=== PATIENT | female | born 2000 | race Two or more races ===

== ENCOUNTER 2024-09-03 16:30 | Emergency (ER) | payer MEDICAID, SELFPAY ==
--- NOTE | 2024-09-03 16:36 | EDNOTE_ITS ---
<Statement entered by Radha Handley MD - 09/12/24 15:52> As co-signing physician, I was present and available for consult prn. I concur with the plan and care as documented by the midlevel provider. ED General RME/HPI General Chief complaint: Overdose Stated complaint: OVERDOSE Time Seen by Provider: 09/03/24 16:35 Arrival date/time: 09/03/24 16:30 CC: Intentional overdose HPI patient took between 10 and 15, 30 mg of Abilify because she was tired of the family arguments and was considering harming herself. Ingestion 1 hour ago approximately. The patient denies homicidal ideation. No specific complaints currently on her menses. Related Data Home Medications ?Medication ?Instructions ?Recorded ?Confirmed vit no.133-ferrous 1 tab PO QDAY 10/16/22 12/08/22 fumarate 28 mg-folic acid 800 mcg tablet () Previous Rx's ?Medication ?Instructions ?Recorded ibuprofen 800 mg tablet 800 mg PO TID PRN pain #30 tabs 04/14/24 Allergies Allergy/AdvReac Type Severity Reaction Status Date / Time No Known Allergies Allergy Verified 04/18/24 09:48 Review of Systems Review of Systems Narrative Review of Systems: GEN: No fever, no chills, no weight loss EYES: No discharge, no visual changes, no pain HEENT: No ear pain, no congestion, no sore throat PULM: No shortness of breath, no cough, no congestion CV: No chest pain, no dyspnea on exertion, no palpitations GI: No nausea, no vomiting, no diarrhea, no pain, no constipation : No frequency, no urgency, no dysuria MUSC/SKEL: No joint pain, no back pain SKIN: No rash PSYCH: No hallucinations, no depression,+ HEME/LYMPH: No easy bleeding or bruising tendencies NEURO: No weakness, no headache Past Medical History Past Medical History CARDIAC: Negative Cardiac Disorders, Myocardial Infarction, Cardiac Arrhythmia, Atrial Fibrillation, Angina, Heart Murmur, Coronary Artery Disease, Atherosclerotic Heart Disease, Peripheral Vascular Disease, Hypercholesterolemia, Aneurysm, Congestive Heart Failure, Congenital Heart Disease, Valvular Heart Disease, Rheumatic Fever, Cardiomyopathy, Edema, Pericarditis, Cellulitis, Deep Vein Thrombosis, Hypertension, Hypotension or Varicose Veins RESPIRATORY: Negative Chronic Obstructive Pulmonary Disease (COPD) GENITOURINARY: Negative Renal Disease REPRODUCTIVE: Positive Previous Pregnancies ENDOCRINE: Negative Diabetes Mellitus Type 1 or Diabetes Mellitus Type 2 PSYCHO/SOCIAL: Positive Schizophrenia, Bipolar Disorder, Depression, Anxiety and Behavior Problems OTHER HISTORY: Negative Autoimmune Disease Family History FAMILY HISTORY: Negative Family Psychiatric Problems, Family Respiratory Disorders, Family Cardiac Disorders, Family Gastrointestinal Problems, Family Cancer, Family Surgery or Family Anesthesia Reaction Surgical History SURGICAL: Negative Pacemaker Social History SMOKING STATUS: Never smoker SUBSTANCE USE: marijuana (smokes) ED Exam Narrative Physical exam: [General: Obese not in any acute distress Head normocephalic HEENT: Within acceptable limits Neck is supple nontender Chest equal chest rise nontender to palpation Respiratory: Clear to auscultation no wheezes crackles or rubs CV: Rate rhythm is regular no murmurs rubs or clicks Abdomen is distended secondary to body habitus soft nontender no masses positive bowel sounds all 4 quadrants Back: No CVA tenderness no spinous process tenderness from cervical spine thoracic and lumbar spine Skin: Intact no petechiae rash induration ulceration or crepitus Extremities: Moving all extremity against resistance cap refill less than 2 seconds neurosensory intact Neuro: Awake alert oriented x3 Glascow coma 15 no focal deficits] Course Course Course Narrative: Poison control contacted the recommendation for EKG salicylates aspirin the standard overdose workup in addition to worry about prolonged sedation, 6-hour observation is recommended. Activated charcoal as recommended. Quality Measures none Orders Category Date Time Status EKG (ED ONLY) *Do not use* NOW Care 09/03/24 16:47 Completed EKG (ED ONLY) *Do not use* NOW Care 09/03/24 22:20 Completed EKG (ED ONLY) *Do not use* NOW Care 09/04/24 03:03 Completed Insert NG / OG tube NOW Care 09/03/24 17:47 Completed NG [DC NG / OG Tube] NOW Care 09/03/24 17:23 Completed Diet Regular Diet 09/04/24 Breakfast Active EKG (ED Only) Stat Exams 09/03/24 16:47 Draft EKG (ED Only) Stat Exams 09/03/24 22:20 Ordered EKG (ED Only) Stat Exams 09/04/24 03:03 Ordered Acetaminophen Stat Lab 09/03/24 16:45 Completed Alcohol, Blood Medical Stat Lab 09/03/24 16:45 Completed CBC Stat Lab 09/03/24 16:45 Completed CMP [Comprehensive Metabolic Panel] Stat Lab 09/03/24 16:45 Completed Drug Screen,Urine Stat Lab 09/04/24 03:28 Completed HCG Qualitative,Urine Stat Lab 09/04/24 03:28 Completed Salicylate Stat Lab 09/03/24 16:45 Completed Urinalysis Stat Lab 09/04/24 03:28 Completed activated charcoaL [Actidose-Aqua] Med 09/03/24 16:47 Discontinued 50 gm PO X1 ONE Late Tray Request Routine Oth 09/03/24 18:04 Active Vital Signs Vital signs: Vital Signs Temperature 98.1 F 09/03/24 17:21 Pulse Rate 92 09/03/24 17:21 Respiratory Rate 16 09/03/24 17:21 Blood Pressure 124/89 H 09/03/24 17:21 Pulse Oximetry (%) 98 09/03/24 17:21 Oxygen Delivery Method Room Air 09/03/24 17:21 [facility] Patient data External records reviewed:: [facility] previous records and EMS form Clinical information provided by:: patient and EMS Social determinants that could affect healthcare access:: none Patient has the following chronic illnesses:: Schizophrenia How is presenting disease/condition affected by chronic disease/condition?: e xacerbated by Evaluation data The following diagnostics were reviewed and interpreted by me:: lab results Lab and/or radiology exams considered but not ordered:: CBC shows no acute leukocytosis anemia thrombocytopenia CMP shows no significant electrolyte imbalances renal impairment transaminitis or T. bili elevation EKG performed at 1810 shows a ventricular rate of 84 NJ interval 138 QRS of 9 0 QTc of 407 normal sinus rhythm. No prolonged QTc interval. Repeat EKG done 2205 shows a ventricular rate of 82 NJ interval 127 QRS of 92 QTc of 398 this is sinus rhythm. No prolonged QTc interval Interpretation Summary: Open no suicidal ideation Medications Medications considered but not ordered:: None Medication administrations:: Medication Administration History Discontinued Medications Charcoal (Activated Charcoal 25 Gm/120 Ml Tube) 50 gm PO X1 ONE Stop: 09/03/24 16:48 Last Admin: 09/03/24 16:58 Dose: 50 gm Documented By: SAMUEL Comments: PER KENTON BURTON, PATIENT WAS UNABLE TO TOLERATED MEDICATION PO, PER PROVIDER MARIANO HINSON TO GIVE THE REST OF MEDICATION VIA NG TUBE, REST OF MEDICATION WAS GIVEN VIA NG TUBE BY KENTON BURTON. None Consultations Consultation(s) initiated? (list below): No Diagnosis Differential Diagnosis ED Complaint MDM: Overdose suicidal ideation Most likely diagnosis given after review of the tests above:: Overdose suicidal ideation Admission Indicated Admission indicated?: not indicated Explain why admission is indicated or not indicated:: Stable for outpatient follow-up Admission Request Was there a request for admission?: No Disposition Plan Disposition Plan: Discharge Discharge Attestation Discharge Attestation: The patient and all family members were given an opportunity to ask questions and understood the discharge instructions. Discharge instructions specifically effects, indications for sooner follow up or return to the emergency department, and the expected course of current diagnosis. Patient condition: Stable Medical Decision Making Differential Diagnosis Differential Diagnosis: Overdose suicidal ideation Lab Data 09/03/24 16:45 09/03/24 16:45 Labs: Lab Results 09/03/24 09/04/24 Range/Units 16:45 03:28 WBC 6.2 (3.6-11.0) Thou/mm3 RBC 4.39 (4.00-5.20) Miln/mm3 Hgb 12.7 (12.0-16.0) g/dL Hct 37.0 (36.0-46.0) % MCV 84 (80-100) fL MCH 28.9 (25.0-35.0) pg MCHC 34.3 (31.0-37.0) g/dl RDW Std Deviation 40.2 (36.4-46.3) fL Plt Count 229 (140-440) Thou/mm3 Neut % (Auto) 61 (37-80) % Lymph % (Auto) 32 (10-50) % Rice % (Auto) 6 (0-12) % Eos % (Auto) 1 (0-10) % Baso % (Auto) 1 (0-2.5) % Neut # (Auto) 3.8 (1.8-7.7) Thou/mm3 Lymph # (Auto) 2.0 (1.0-4.8) Thou/mm3 Rice # (Auto) 0.3 (0.0-0.8) Thou/mm3 Eos # (Auto) 0.1 (0.0-0.5) Thou/mm3 Baso # (Auto) 0.0 (0.0-0.2) Thou/mm3 Immature Gran # (Auto) 0.01 H (0.00-0.00) Thou/mm3 Absolute Nucleated RBC 0.00 (0.00-0.00) Thou/mm3 Immature Gran % 0 (0-0) % Nucleated RBC % 0 (0) /100 WBC Sodium 140 (136-145) mMol/L Potassium 4.1 (3.4-5.1) mMol/L Chloride 106 (98-107) mMol/L Carbon Dioxide 25.3 (20.0-31.0) mMol/L Anion Gap 9 (7-16) BUN 9 (9-23) mg/dL Creatinine 0.8 (0.6-1.3) mg/dL Estim Creat Clear Calc 130.9 (>60) mL/min eGFR > 60 (60 - ) See Note BUN/Creatinine Ratio 11 L (12-20) Ratio Glucose 105 (74-106) mg/dL Calculated Osmolality 278 (275-295) Calcium 9.6 (8.3-10.6) mg/dL Corrected Calcium 9.6 (8.5-10.1) mg/dL Total Bilirubin 0.3 (0.3-1.2) mg/dL AST 17 (0-34) U/L ALT 22 (10-49) U/L Alkaline Phosphatase 59 (46-116) U/L Total Protein 7.7 (5.7-8.2) gm/dL Albumin 4.9 (3.5-5.0) gm/dL Globulin 2.8 (2.3-3.5) gm/dL Albumin/Globulin Ratio 1.8 (1.2-2.2) Ur Collection Type Clean Catch Urine Color Yellow (Lt Yel-Yel) Urine Clarity Turbid A (Clear/Hazy) Urine pH 5.5 (5.0-7.0) Ur Specific [place] 1.031 (1.001-1.035) Urine Protein 1+ A (Neg - Trace) Urine Glucose (UA) Negative (Negative) Urine Ketones Negative (Negative) Urine Blood 3+ A (Negative) Urine Nitrite Negative (Negative) Urine Bilirubin Negative (Negative) Urine Urobilinogen (Auto) Negative (0.0-1.0) mg/dL Ur Leukocyte Esterase Negative (Negative) Urine RBC 1126 H (0-3) /hpf Urine WBC 24 H (0-5) /hpf Ur Squamous Epith Cells 9 H (0-5) /hpf Urine Bacteria Rare (None) Urine HCG, Qual Negative Salicylates < 3.0 mg/dL Urine Opiates Screen Negative (Negative) Urine Fentanyl Screen Negative (Negative) Acetaminophen < 2.0 L (10.0-20.0) mcg/mL Ur Barbiturates Screen Negative (Negative) U Amphetamin/Meth Scrn Negative (Negative) U Benzodiazepines Scrn Negative (Negative) U Cocaine Metab Screen Negative (Negative) U Marijuana (THC) Screen Negative (Negative) Ethyl Alcohol < 10.0 (0-10.0) mg/dL Discharge Plan Plan Patient Disposition: HOME (Self Care) Prescriptions/Referrals Prescriptions/Med Rec: No Action 28-800 mg-mcg Tablet 1 tab PO QDAY ibuprofen 800 mg tablet 800 mg PO TID PRN (Reason: pain) Qty: 30 0RF Referrals: Peterson Lamar MD [Primary Care Provider] - In 1 week Problem List Clinical Impression: Purposeful non-suicidal drug ingestion Patient/Caregiver Discharge Instructions Education Materials: ED Overdose, Intentional (Adult) Print Language: Khmer Stand Alone Forms: Asiya Award Info., Patient Portal Info Letter
--- NOTE | 2024-09-03 16:47 | EKG_ITS ---
[facility] Test Date: 2024-09-03 Pat Name: RAMONA SALGADO Department: Room: - Gender: Female Staff Sonographer: : 2000 Requested By: Gabo Klein Order Number: [id number] Reading MD: Gabo Klein Measurements Intervals [place] Rate: 84 P: 28 [place]: 138 QRS: 19 QRSD: 90 T: 23 QT: 366 QTc: 433 Interpretive Statements SINUS RHYTHM LOW QRS VOLTAGE IN PRECORDIAL LEADS [QRS DEFLECTION < 1.0 mV IN CHEST LEADS] No previous ECG available for comparison /store/S0/[id number]/[id number].pdf
[2024-09-03 16:53] VITALS: PULSE 104; RESP 16; O2SAT 98; BMI 39.4
[2024-09-03 16:57] LABS: Basophils % (Auto) 1 % (0-2.5); Eosinophils # (Auto) 0.1 Thou/mm3 (0.0-0.5); Eosinophils % (Auto) 1 % (0-10); Hemoglobin 12.7 g/dL (12.0-16.0); Immature Granulocytes % (Auto) 0 % (0-0); Immature Granulocytes Auto 0.01 Thou/mm3 (0.00-0.00); Lymphocytes % (Auto) 32 % (10-50); Mean Corpuscular HGB Conc 34.3 g/dl (31.0-37.0); Mean Corpuscular Hemoglobin 28.9 pg (25.0-35.0); Mean Corpuscular Volume 84 fL (80-100); Monocytes # (Auto) 0.3 Thou/mm3 (0.0-0.8); Monocytes % (Auto) 6 % (0-12); Neutrophils # (Auto) 3.8 Thou/mm3 (1.8-7.7); Neutrophils % (Auto) 61 % (37-80); Nucleated Red Blood Cell % 0 /100 WBC (0); Platelet Count 229 Thou/mm3 (140-440); RDW Standard Deviation 40.2 fL (36.4-46.3); Red Blood Count 4.39 Miln/mm3 (4.00-5.20); White Blood Count 6.2 Thou/mm3 (3.6-11.0)
[2024-09-03] MEDS: activated charcoaL 25 GM/120 ML TUBE 50 GM PO (16:58)
--- NOTE | 2024-09-03 17:06 | PC.NURSE ---
POISON CONTROL WAS CONTACTED BY PROVIDER PEREZ.
[2024-09-03 17:21] VITALS: BP 124/89; PULSE 92; RESP 16; TEMP 36.7; O2SAT 98
[2024-09-03 17:31] LABS: Acetaminophen < 2.0 mcg/mL (10.0-20.0); Alanine Aminotransferase 22 U/L (10-49); Albumin, Serum 4.9 gm/dL (3.5-5.0); Albumin/Globulin Ratio 1.8 (1.2-2.2); Alcohol, Blood Medical < 10.0 mg/dL (0-10.0); Alkaline Phosphatase 59 U/L (46-116); Anion Gap 9 (7-16); Aspartate Amino Transferase 17 U/L (0-34); BUN/Creatinine Ratio 11 Ratio (12-20); Bilirubin,Total 0.3 mg/dL (0.3-1.2); Blood Urea Nitrogen 9 mg/dL (9-23); Calcium 9.6 mg/dL (8.3-10.6); Calcium (Corrected) 9.6 mg/dL (8.5-10.1); Carbon Dioxide 25.3 mMol/L (20.0-31.0); Chloride 106 mMol/L (98-107); Creatinine (Component) 0.8 mg/dL (0.6-1.3); Estimated Creatinine Clearance 130.9 mL/min (>60); Globulin 2.8 gm/dL (2.3-3.5); Glucose 105 mg/dL (74-106); Osmolality,Calculated 278 (275-295); Potassium 4.1 mMol/L (3.4-5.1); Salicylate < 3.0 mg/dL; Sodium 140 mMol/L (136-145); Total Protein 7.7 gm/dL (5.7-8.2); eGFR > 60 See Note
--- NOTE | 2024-09-03 17:37 | PC.CC ---
Pt Ruth Alexander is a 23-year-old female in brought to ED by EMS for intentional overdose. Pt is pending medical clearance and psych eval.
--- NOTE | 2024-09-03 17:51 | PC.CC ---
Louise ORTEGA was consulted by YOEL Marsh regarding patient's medical clearance will depend on poison control.
[2024-09-03 18:18] VITALS: BP 130/71; PULSE 80; RESP 17; TEMP 36.9; O2SAT 98
[2024-09-03 20:07] VITALS: BP 110/62; PULSE 81; RESP 17; TEMP 36.6; O2SAT 98
[2024-09-03 22:25] VITALS: BP 111/76; PULSE 83; RESP 18; TEMP 36.8; O2SAT 97
--- NOTE | 2024-09-03 23:04 | PD.EDADDENDU ---
Emergency Room Addendum Addendum Narrative: 2300: Care assumed from Gabo Marsh NP. Past medical, surgical, social and family history reviewed. Vitals and home medications reviewed. Results and treatment plan discussed. I will assume the care of the patient at this time and will follow the patient, pending repeat EKG at 0200 and medical clearance for crisis evaluation. Please refer to the emergency department record for history and examination from initial visit. Repeat EKG done at 0311, rate of 81, low voltage, similar ST-T wave changes in lead III, QTc: 399, no STEMI, according to my interpretation. Patient is medically clear for crisis evaluation. Patient was placed in observation for treatment and monitoring of psychiatric symptoms, at 0311 09/04/2024. Symptoms consist of suicidal ideation and depression. Treatment plan includes psychiatric consult, reassessments, and possible placement into psychiatric facility. The patient had access and provided personal hygiene, shower, food, water, and daily medications. 0600: Care signed out to Dr. Handley (emergency physician). Past medical, surgical, social and family history reviewed. Vitals and home medications reviewed. Results and treatment plan discussed. They will assume the care of the patient at this time and will follow the patient, pending crisis evaluation. At this time, observation has ended.
[2024-09-04 03:49] LABS: Collection Type, Urine Clean Catch
[2024-09-04 03:58] VITALS: BP 119/82; PULSE 73; RESP 18; TEMP 36.5; O2SAT 100
[2024-09-04 03:58] LABS: Bacteria,Urine Rare; Bilirubin,Urine Negative (Negative); Blood,Urine 3+ (Negative); Clarity,Urine Turbid (Clear/Hazy); Color,Urine Yellow (Lt Yel-Yel); Glucose, Urine Negative (Negative); Ketones,Urine Negative (Negative); Leukocyte Esterase,Urine Negative (Negative); Nitrite,Urine Negative (Negative); PH,Urine 5.5 (5.0-7.0); Protein,Urine 1+ (Neg - Trace); RBC,Urine 1126 /hpf (0-3); Specific Gravity,Urine 1.031 (1.001-1.035); Squamous Epithelial Cell,Urine 9 /hpf (0-5); Urobilinogen,Urine Negative mg/dL (0.0-1.0); WBC,Urine 24 /hpf (0-5)
[2024-09-04 04:03] LABS: Amphetamine/Methamp Scrn,U Negative (Negative); Barbiturate Screen,Urine Negative (Negative); Benzodiazepines Screen,Urine Negative (Negative); Benzoylecgonine Screen, Ur Negative (Negative); Fentanyl Screen,Urine Negative (Negative); Opiate Screen,Urine Negative (Negative); THC Screen,Urine Negative (Negative)
[2024-09-04 04:26] LABS: HCG Qualitative,Urine Negative
[2024-09-04 05:55] VITALS: BP 121/89; PULSE 75; RESP 18; TEMP 37.1; O2SAT 100
--- NOTE | 2024-09-04 07:20 | PC.NURSE ---
REPORT RECEIVED AT THIS TIME; PER REPORT, PT HERE FOR SI; PT TOOK ABOUT 10 PILLS OF ABILIFY. PT HAS BEEN SLEEPING. PT CONNECTED TO MONITORS AT THIS TIME. @4398- UPON INITIAL ASSESSMENT, PT STATES, I TOOK ABOUT 15 PILLS OF ABILIFY; THE DOSE WAS 30MG. PT DENIES PAIN AT THIS TIME.
[2024-09-04 07:45] VITALS: BP 109/79; PULSE 787; RESP 18; TEMP 36.7; O2SAT 97
--- NOTE | 2024-09-04 08:33 | PC.NURSE ---
NUTRITION CALLED FOR PT'S LATE TRAY FOR BREAKFAST SAFETY TRAY. PER NUTRITION STAFF, WILL BRING ONE FOR PT SOON.
[2024-09-04 08:52] VITALS: BP 134/95; PULSE 85; RESP 19; TEMP 36.7; O2SAT 98
--- NOTE | 2024-09-04 09:55 | PC.CC ---
Patient is a 23 year-old female BIBA for intentional overdose. Kenrick made [id number] contact with patient to complete assessment. ASW?s introduced self, role, and reason for assessment to patient. ASW disclosed limits of confidentiality as well. Patient appeared alert and oriented to self, place, and situation. Patient mood appeared depressed throughout assessment; her behavior appeared disinhibited with flat affect. Patient?s thought process was linear and organized. Patient reports she had an argument with her parents whom she lives with which escalated to her feeling sadness and frustration. Patient went to her room and took 15-20 Ambilify pills 30mg not with the intention of killing herself but out of frustration. She stated, ?I wanted to go to sleep but wake up.? Patient disclosed she is sentimental currently as she on her menstrual cycle feels emotional. ASW explored with patient if she would have asked for help if her mother would have not found out she had taken the pill. Patient stated she would have told her mother as she was scared. ASW inquired if there would have been medication at her reach would she have taken more. Patient reported no she would not have taken more medication. Patient is connected to [facility] and is seen by Dr. Eubanks once a month, and therapist Carlito twice a month. Patient has a mental health diagnosis of Schizophrenia and Bipolar Disorder. She is prescribed Ambilify 30mg 1x/day at bedtime and reports being compliant. Patient reports she has been on a 5150-hold but does not recall when the last time she was on a hold. Patient denied current suicidal and homicidal ideations and visual and auditory hallucinations. Patient reports the last time she had a suicide attempt was when she was in middle school by cutting herself. Patient reports history of self-harm behaviors denied current self-harm ideations. Patient reports she regrets taking the medication but was frustrated. Patient reports she is currently employed at [employer] and enjoys working. Patient scored high on the [place] Screening. The following information is collateral information from patient?s mother, Danelle Lafleur . Patient?s mother reports that the patient has been emotional today more than usual and yesterday she drank a bottle of wine. Patient?s mother reports this could have caused a negative reaction due to her mental health and psychotropic medication. Mother reported that as of yesterday morning the patient had displayed perseverating behaviors in regards to social media. Patient was questioning her self-worth and comparing self to others on social media. Patient is compliant with mental health services and medication. Patient?s mother is willing to safety plan but shares concerns as she no longer has medications at home and would need to get an appointment with PAC as soon as possible. Patient is willing to engage in safety plan. Upon clinical consultation with [employer]O TECHNICIAN, Huyen Linder patient does not meet criteria for 5150-hold. ASW to establish safety plan with patient and patient?s mother, Danelle. Safety plan is for Danelle kim to provide extra supervision for the next 72 hours and to lock all medications and sharps. There are no fire arms in the home. Mother to ensure patient goes to her appointment scheduled on 09/05/[address]24 at 4:[address] Dr. Handley provided information regarding discharge plan of safety plan with patient and her mother, safe and vault service mechanic Sara, and MICHEAL Reese provided with update regarding discharge plan.
[2024-09-04 10:28] VITALS: BP 120/75; PULSE 97; RESP 22; TEMP 37.1; O2SAT 98
--- NOTE | 2024-09-04 10:50 | PC.NURSE ---
Pt's mother, Mirna, at bedside with pt; per pt, my mom will be driving me back home.
--- NOTE | 2024-09-04 10:50 | EDNOTE_ITS ---
Emergency Room Addendum Addendum Narrative: 0600: Care assumed from , the previous shift emergency physician. Past medical, surgical, social and family history reviewed. Vitals and home medications reviewed. I will assume the care of the patient at this time, pending medical clearance for mental health evaluation. Please refer to the emergency department record for history and examination from initial visit.? EMS notes reviewed by me. Nursing notes reviewed by me. Vital signs reviewed by me. [facility] medical records reviewed by me. 0700: Patient medically cleared for mental health evaluation. 1020: Patient has been evaluated by ASW. A safety plan was created with both patient and mother. Patient remains clinically stable throughout the emergency department. We reviewed all the results, analysis, and treatment plans. Patient is amenable to discharge. Strict return precautions were outlined. Patient was discharged in stable condition.
== END 2024-09-04 11:01 | disposition home or self-care (01) ==
PROVIDERS: Registered Nurse General Practice; Emergency Provider Emergency Medicine; PCP Family Medicine
DX: T43.592A Poisoning by other antipsychotics and neuroleptics, intentional self-harm, initial encounter (principal); F20.9 Schizophrenia, unspecified; R94.31 Abnormal electrocardiogram [ECG] [EKG]
CPT/HCPCS: 36415; 80053; 80307; 80320; 80329; 81001; 81025; 85025; 90839; 93005; 96127; 99284; A9270; G0480

== ENCOUNTER 2024-09-05 17:20 | Emergency (ER) | payer MEDICAID, SELFPAY ==
[2024-09-05 17:55] VITALS: BP 137/87; PULSE 120; RESP 19; TEMP 37.1; O2SAT 98; BMI 38.9
--- NOTE | 2024-09-05 18:25 | PD.EDADULT ---
ED General RME/HPI General Chief complaint: General Adult/Misc Complain Stated complaint: RAN OUT OF MEDICATION Time Seen by Provider: 09/05/24 18:03 Arrival date/time: 09/05/24 17:20 23 year old female present to emergency room with c/o of medication refill. pt report normally takes abilifty 30mg daily but has not taken in 3 days. Her next appointment with psychiarist is on sep. Pt denies any SI, Hallucination or homicidal thoughts. pt was recently cleared by crisis after accidentally had overdose a few days ago. SEVERITY: Symptoms are described as being severe with limitations on activities of daily living CONTEXT: The patient is unable to identify any inciting events. DURATION/TIMING: The symptoms started approximately 1 day ASSOCIATED SYMPTOMS: The patient is unable to identify any other associated symptoms. MODIFYING FACTORS: The patient is unable to identify any alleviating or aggravating symptoms. PERTINENT ROS: no fevers, no cough, no pleuritic pain, no ripping or tearing sensations, denies any lower extremity edema and no unilateral swelling, no chest pain/shortness of breath no nausea,vomiting, diarrhea, no dizziness/headache no rash no loc/syncope episode no abd/back pain no dsyuria,urgency,frequency REVIEW OF SYSTEMS: See History of Present Illness - with the exception of those mentioned in the history of present illness, all other systems reviewed and reported as negative GENERAL: In general the patient is awake, interactive, in an emergency department [place]. HEAD/EYES/EARS/NOSE/THROAT: normo-cephalic, atraumatic, mucus membranes are moist, anicteric, palpebral conjunctiva is pink, trachea is midline. CARDIOVASCULAR: regular rate and regular rhythm, no murmurs, heart sounds are not distant, strong pulses in all four extremities that are equal and symmetric bilateral upper and lower extremities, normal capillary refill. CHEST/PULMONARY: normal chest rise and fall, good air movement, clear to auscultation bilaterally, normal inspiratory to expiratory ratios without evidence of respiratory distress. NECK: No midline/Paraspinal tenderness, no step off ROM/Strenght intact No Kernig and bruzinski sign. No trauma ABDOMEN: soft, not tender, no masses appreciated BACK: normal range of motion without pain. NEUROLOGICAL: cranio-facial features are symmetric, moves all four extremities equally without obvious limitations or weakness. EXTREMITY: no tenderness to palpation over the long bones or large joints of the bilateral upper and lower extremities, no joint swelling, no joint erythema, no signs of trauma, no unilateral leg swelling and no peripheral edema. SKIN: warm, dry, well-perfused, no jaundice, no rash, no telangiectasias or petechia. PSYCH: calm, cooperative, no evidence of psychosis or agitation Related Data Home Medications ?Medication ?Instructions ?Recorded ?Confirmed vit no.133-ferrous 1 tab PO QDAY 10/16/22 12/08/22 fumarate 28 mg-folic acid 800 mcg tablet () Previous Rx's ?Medication ?Instructions ?Recorded ibuprofen 800 mg tablet 800 mg PO TID PRN pain #30 tabs 04/14/24 aripiprazole 30 mg tablet (Abilify) 30 mg PO QDAY #5 tabs 09/05/24 Allergies Allergy/AdvReac Type Severity Reaction Status Date / Time No Known Allergies Allergy Verified 09/05/24 17:23 Course Course Course Narrative: spoke with school social worker cleared by school social worker and recently seen by therapist today and advised to go to ED for medication refill. Quality Measures none Vital Signs Vital signs: Vital Signs Temperature 98.8 F 09/05/24 17:55 Pulse Rate 120 H 09/05/24 17:55 Respiratory Rate 19 09/05/24 17:55 Blood Pressure 137/87 H 09/05/24 17:55 Pulse Oximetry (%) 98 09/05/24 17:55 Oxygen Delivery Method Room Air 09/05/24 17:55 [facility] Patient data External records reviewed:: [facility] previous records Clinical information provided by:: patient Social determinants that could affect healthcare access:: mental health Patient has the following chronic illnesses:: as stated above How is presenting disease/condition affected by chronic disease/condition?: caused by Evaluation data The following diagnostics were reviewed and interpreted by me:: other (specify) (none ) Lab and/or radiology exams considered but not ordered:: none Interpretation Summary: none Medications Medications considered but not ordered:: none Medication administrations:: first dose of abilifty Consultations Consultation(s) initiated? (list below): No Diagnosis Differential Diagnosis ED Complaint MDM: medication refill Most likely diagnosis given after review of the tests above:: medication refill Admission Indicated Admission indicated?: not indicated Explain why admission is indicated or not indicated:: not indicated Admission Request Was there a request for admission?: No Disposition Plan Disposition Plan: Discharge Discharge Attestation Discharge Attestation: The patient and all family members were given an opportunity to ask questions and understood the discharge instructions. Discharge instructions specifically effects, indications for sooner follow up or return to the emergency department, and the expected course of current diagnosis. Patient condition: Stable Medical Decision Making Differential Diagnosis Differential Diagnosis: medication refill Discharge Plan Plan Patient Disposition: HOME (Self Care) Health Concerns: FOLLOW UP WITH YOUR SPECIALIST ON SUNDAY RETURN TO ED IF SYMPTOMS WORSEN Prescriptions/Referrals Prescriptions/Med Rec: New aripiprazole [Abilify] 30 mg tablet 30 mg PO QDAY Qty: 5 0RF No Action 28-800 mg-mcg Tablet 1 tab PO QDAY ibuprofen 800 mg tablet 800 mg PO TID PRN (Reason: pain) Qty: 30 0RF Referrals: Celina Miranda OIM ARCHITECT [Primary Care Provider] - In 1 week Problem List Clinical Impression: Medication refill Patient/Caregiver Discharge Instructions Print Language: Mongolian Stand Alone Forms: Asiya Award Info., Patient Portal Info Letter
--- NOTE | 2024-09-05 18:28 | PC.CC ---
SHANNON, was consulted by YOEL Stevens to speak with the patient regarding her prescription of Ambilify as she ran out due to overdosing a few days ago and does not have an appointment with the Psychiatrist, Dr. Eubanks until Sep 25, 2024. WILLIEW met with the patient and informed her that YOEL Stevens was going to prescribe her 5 pills and to follow up with [facility] on Sunday to attempt to get an appointment with her psychiatrist sooner than the . Patient reports she will follow-up on Sunday to attempt to obtain a sooner appointment for her medication.
[2024-09-05] MEDS: ARIPiprazole 5 MG TABLET 30 MG PO (18:45)
== END 2024-09-05 19:01 | disposition home or self-care (01) ==
PROVIDERS: Emergency Provider Emergency Medicine; PCP Nurse Practitioner Family
DX: Z76.0 Encounter for issue of repeat prescription (principal)
CPT/HCPCS: 99282; A9270

== ENCOUNTER 2025-05-13 20:45 | Emergency (ER) | payer MEDICAID, SELFPAY ==
[2025-05-13 20:55] VITALS: BP 134/91; PULSE 123; RESP 20; TEMP 37.1; O2SAT 96
--- NOTE | 2025-05-13 20:57 | EKG_ITS ---
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
--- NOTE | 2025-05-13 20:57 | XR_ITS ---
Examination: AP chest single view Technique one AP portable chest single view Date and time: May 13, 2025, 2100 hrs. Indications: Shortness of breath today. Findings: Normal heart size. Lungs are clear. The osseous structures are intact. Impression: No active disease.
--- NOTE | 2025-05-13 20:57 | EDNOTE_ITS ---
ED Psych RME/HPI General Chief Complaint: Psychiatric Symptoms Stated Complaint: [facility] Time Seen by Provider: 05/13/25 21:09 Arrival date/time: 05/13/25 20:45 RME / HPI RME / HPI Narrative: See MDM for Dr. Doan's HPI documentation. Related Data Home Medications ?Medication ?Instructions ?Recorded ?Confirmed vits no.133-ferrous 1 tab PO QDAY 10/16/22 fumarate 28 mg-folic acid 800 mcg tablet () Previous Rx's ?Medication ?Instructions ?Recorded ibuprofen 800 mg tablet 800 mg PO TID PRN pain #30 t abs 04/14/24 aripiprazole 30 mg tablet (Abilify) 30 mg PO QDAY #5 t abs 09/05/24 Allergies Allergy/AdvReac Type Severity Reaction Status Date / Time No Known Allergies Allergy Verified 09/05/24 17:23 Review of Systems Review of Systems Systems Reviewed: All systems reviewed, normal except as documented Past Medical History Past Medical History CARDIAC: Negative Cardiac Disorders, Myocardial Infarction, Cardiac Arrhythmia, Atrial Fibrillation, Angina, Heart Murmur, Coronary Artery Disease, Atherosclerotic Heart Disease, Peripheral Vascular Disease, Hypercholesterolemia, Aneurysm, Congestive Heart Failure, Congenital Heart Di sease, Valvular Heart Disease, Rheumatic Fever, Cardiomyopathy, Edema, Pericarditis, Cellulitis, Deep Vein Thrombosis, Hypertension, Hypotension or Varicose Veins RESPIRATORY: Negative Chronic Obstructive Pulmonary Disease (COPD) GENITOURINARY: Negative Renal Disease REPRODUCTIVE: Positive Previous Pregnancies ENDOCRINE: Negative Diabetes Mellitus Type 1 or Diabetes Mellitus Type 2 PSYCHO/SOCIAL: Positive Schizophrenia, Bipolar Disorder, Depression, Anxiety and Behavior Problems OTHER HISTORY: Negative Autoimmune Disease Family History FAMILY HISTORY: Negative Family Psychiatric Problems, Family Respiratory Disorders, Family Cardiac Disorders, Family Gastrointestinal Problems, Family Cancer, Family Surgery or Family Anesthesia Reaction Surgical History SURGICAL: Negative Pacemaker Social History SMOKING STATUS: Never smoker SUBSTANCE USE: marijuana (smokes) ED Exam Narrative Physical exam: See MDM for Dr. Doan's physical exam documentation. Course Quality Measures none Orders Category Date Time Status Bedside COVID-19 Antigen Test NOW Care 05/13/25 22:51 Active Bedside Influenza A&B Antigen Test NOW Care 05/13/25 22:51 Completed EKG (ED ONLY) *Do not use* NOW Care 05/13/25 20:57 Completed Miscellaneous Nursing Order NOW Care 05/13/25 20:58 Active Saline [Insert IV] NOW Care 05/13/25 20:58 Active Referral Psych Eval Stat Cons 05/13/25 20:57 Active EKG (ED Only) Stat Exams 05/13/25 20:57 Draft XR chest 1V portable Stat Exams 05/13/25 20:57 Completed Acetaminophen Stat Lab 05/13/25 22:04 Completed Alcohol, Blood Medical Stat Lab 05/13/25 22:04 Completed Bilirubin,Direct Stat Lab 05/13/25 22:04 Completed CBC Stat Lab 05/13/25 22:04 Completed CK [Creatine Kinase] Stat Lab 05/13/25 22:04 Completed CMP [Comprehensive Metabolic Panel] Stat Lab 05/13/25 22:04 Completed Drug Screen,Urine Stat Lab 05/13/25 22:57 Completed HCG,Qualitative Serum Stat Lab 05/13/25 22:04 Completed Magnesium Stat Lab 05/13/25 22:04 Completed Salicylate Stat Lab 05/13/25 22:04 Completed Salicylate Stat Lab 05/14/25 00:16 Completed Salicylate Stat Lab 05/14/25 03:01 Completed TSH [Thyroid Stimulating Hormone] Stat Lab 05/13/25 22:04 Completed Troponin I Stat Lab 05/13/25 22:04 Completed UA, C/S IF [Urinalysis, C/S if Indicated] Stat Lab 05/13/25 22:57 Completed Metoprolol Tartrate [Lopressor] Med 05/13/25 21:32 Discontinued 25 mg PO X1 ONE Ondansetron Inj [Zofran Inj] Med 05/13/25 20:58 Discontinued 4 mg IVP X1 ONE Sodium Chloride 0.9% 1000 ml [Ns] 1,000 ml Med 05/13/25 20:58 Discontinued IV 999 mls/hr Vital Signs Vital signs: Vital Signs Temperature 98.8 F 05/13/25 20:55 Pulse Rate 123 H 05/13/25 20:55 Respiratory Rate 20 05/13/25 20:55 Blood Pressure 134/91 H 05/13/25 20:55 Pulse Oximetry (%) 96 05/13/25 20:55 Oxygen Delivery Method Room Air 05/13/25 20:55 Psych MDM Narrative MDM Narrative:: This section includes all my notes and documentations, including HPI, PE, and ED course. Marquis Doan MD HPI: 24yo female with history of schizophrenia BIBA from home here on 5150 hold. Patient was frustrated and tired of living with her parents. So she wrote goodbye letter and took 4 tablets of Ativan 2 mg pills and one baby aspirin. No HI or hallucinations. No other complaints reported. ROS: All negative except as documented in HPI. Physical Exam: General: Alert and oriented. No acute distress when remaining still. Eyes: Conjunctivae and lids clear. PERRL. EOMI. ENT: No nasal congestion. Neck: Supple. Heart: Sinus tachycardia noted. Lungs: No respiratory distress. Good air movement. No rhonchi, wheezing, rales. Abdomen: Soft and nontender. Skin: Warm and dry. Neuro: Alert and oriented X 3. Cranial nerves II to XII grossly normal. No peripheral motor deficits. I reviewed EMS and 5150 notes. I reviewed all diagnostic test results. My interpretation of the EKG is sinus tachycardia with nonspecific ST-T changes. My interpretation of the chest x-ray is NAD. Blood tests and urine tests are unremarkable. COVID/Influenza negative. At this point, diagnoses include: Suicidal behavior Overdose Treatment here included: IV fluid Metoprolol 25 mg orally Zofran 4 mg IV Entered order for evaluation by our ED student career development specialist. Patient is medically cleared for further psychiatric care. Patient remained stable. At 6 AM on 03/09/2025, the care of the patient was transferred to Dr. Castanon. Marquis Doan MD Patient data External records reviewed:: [facility] previous records Clinical information provided by:: patient Social determinants that could affect healthcare access:: mental health Patient has the following chronic illnesses:: schizophrenia How is presenting disease/condition affected by chronic disease/condition?: exacerbated by Evaluation data The following diagnostics were reviewed and interpreted by me:: lab results, radiology exam(s) and EKG tracing(s) (My interpretation of the EKG is: Sinus tachycardia (107 bpm) with nonspecific ST-T changes. Marquis Doan MD) Lab and/or radiology exams considered but not ordered:: none Interpretation Summary: I reviewed all diagnostic test results. My interpretation of the EKG is sinus tachycardia with nonspecific ST-T changes. My interpretation of the chest x-ray is NAD. Blood tests and urine tests are unremarkable. COVID/Influenza negative. Medications / Prescriptions Medications or Prescriptions considered but not ordered:: none Medication administrations:: Medication Administration History Discontinued Medications Sodium Chloride (Ns) 1,000 mls @ 999 mls/hr IV .Q1H1M ONE Stop: 05/13/25 21:58 Last Infusion: 05/13/25 23:10 Dose: Infused Documented By: Admin: 05/13/25 22:03 Dose: 999 mls/hr Documented By: DT Metoprolol Tartrate (Metoprolol Tartrate 25 Mg Tablet) 25 mg PO X1 ONE Stop: 05/13/25 21:33 Last Admin: 05/13/25 22:16 Dose: 25 mg Documented By: DT Ondansetron HCl (Ondansetron Inj 2 Mg/Ml Inj 2 Ml) 4 mg IVP X1 ONE; Protocol Stop: 05/13/25 20:59 Last Admin: 05/13/25 22:17 Dose: Not Given Documented By: DT Non-Admin Reason: Patient Refused IV fluid Metoprolol 25 mg orally Zofran 4 mg IV Consultations Consultation(s) initiated? (list below): No Diagnosis Psych Differential Diagnosis: acute psychosis, chronic schizophrenia, suicidal ideation, bipolar disorder, depression, drug-induced psychotic disorder and acute anxiety Most likely diagnosis given after review of the tests above:: Suicidal behavior Overdose Admission Indicated Admission indicated?: not indicated Explain why admission is indicated or not indicated:: No psychiatric service here. Admission Request Was there a request for admission?: No Disposition Plan Disposition Plan: other (specify) (Signed out to Dr. Castanon at 6 AM/) Discharge Plan Prescriptions/Referrals Prescriptions/Med Rec: No Action 28-800 mg-mcg Tablet 1 tab PO QDAY ibuprofen 800 mg tablet 800 mg PO TID PRN (Reason: pain) Qty: 30 0RF aripiprazole [Abilify] 30 mg tablet 30 mg PO QDAY Qty: 5 0RF Referrals: Clarice Mcginnis PA-C [Primary Care Provider] - In 1 week Problem List Clinical Impression: Suicidal behavior, Overdose Patient/Caregiver Discharge Instructions Print Language: Sudanese
[2025-05-13 21:50] VITALS: PULSE 120; RESP 14; O2SAT 99; BMI 36.0
[2025-05-13 21:56] VITALS: BP 122/86; PULSE 115; RESP 14; TEMP 37; O2SAT 99
[2025-05-13] MEDS: SODIUM CHLORIDE 0.9% 1000 ML 1,000 ML 999 ML IV (22:03)
[2025-05-13 22:16] VITALS: BP 125/87; PULSE 110
[2025-05-13] MEDS: METOPROLOL TARTRATE 25 MG TABLET PO (22:16)
[2025-05-13 22:19] LABS: Basophils # (Auto) 0.0 Thou/mm3 (0.0-0.2); Basophils % (Auto) 0 % (0-2.5); Eosinophils # (Auto) 0.0 Thou/mm3 (0.0-0.5); Eosinophils % (Auto) 0 % (0-10); Hematocrit 38.2 % (36.0-46.0); Hemoglobin 12.7 g/dL (12.0-16.0); Immature Granulocytes Auto 0.01 Thou/mm3 (0.00-0.00); Lymphocytes # (Auto) 1.5 Thou/mm3 (1.0-4.8); Lymphocytes % (Auto) 20 % (10-50); Mean Corpuscular HGB Conc 33.2 g/dl (31.0-37.0); Mean Corpuscular Hemoglobin 28.4 pg (25.0-35.0); Mean Corpuscular Volume 86 fL (80-100); Monocytes # (Auto) 0.4 Thou/mm3 (0.0-0.8); Monocytes % (Auto) 5 % (0-12); Neutrophils # (Auto) 5.8 Thou/mm3 (1.8-7.7); Neutrophils % (Auto) 75 % (37-80); Nucleated Red Blood Cell # 0.00 Thou/mm3 (0.00-0.00); Nucleated Red Blood Cell % 0 /100 WBC (0); Platelet Count 249 Thou/mm3 (140-440); RDW Standard Deviation 40.7 fL (36.4-46.3); Red Blood Count 4.47 Miln/mm3 (4.00-5.20); White Blood Count 7.8 Thou/mm3 (3.6-11.0)
--- NOTE | 2025-05-13 22:25 | PC.NURSE ---
SPOKE WITH THE FATHER AND HE STATED THE LORAZAPAM IS 2MG AND ASPIRIN IS 81 MG.
[2025-05-13 22:38] LABS: Acetaminophen < 2.0 mcg/mL (10.0-20.0); Alanine Aminotransferase 21 U/L (10-49); Albumin, Serum 5.2 gm/dL (3.5-5.0); Albumin/Globulin Ratio 2.3 (1.2-2.2); Alcohol, Blood Medical < 3.0 mg/dL (0-10.0); Alkaline Phosphatase 55 U/L (46-116); Anion Gap 12 (7-16); Aspartate Amino Transferase 27 U/L (0-34); BUN/Creatinine Ratio 13 Ratio (12-20); Bilirubin,Direct 0.1 mg/dL (0.0-0.3); Bilirubin,Total 0.4 mg/dL (0.3-1.2); Blood Urea Nitrogen 9 mg/dL (9-23); Calcium 10.1 mg/dL (8.3-10.6); Calcium (Corrected) 10.1 mg/dL (8.5-10.1); Carbon Dioxide 25.3 mMol/L (20.0-31.0); Chloride 104 mMol/L (98-107); Creatine Kinase 57 U/L (34-171); Creatinine (Component) 0.7 mg/dL (0.6-1.3); Estimated Creatinine Clearance 141.1 mL/min (>60); Globulin 2.3 gm/dL (2.3-3.5); Glucose 96 mg/dL (74-106); Magnesium 2.0 mg/dL (1.6-2.6); Osmolality,Calculated 279 (275-295); Potassium 4.3 mMol/L (3.4-5.1); Salicylate < 3.0 mg/dL; Sodium 141 mMol/L (136-145); Thyroid Stimulating Hormone 0.88 uIU/mL (0.55-4.78); Total Protein 7.5 gm/dL (5.7-8.2); Troponin I < 0.002 ng/mL (0.0-0.045); eGFR > 60 See Note
[2025-05-13 22:46] LABS: HCG,Qualitative Serum Negative
--- NOTE | 2025-05-13 22:52 | PC.NURSE ---
SPOKE WITH JONAS FROM POISON CONTROL. PER JONAS WE WILL JUST MONITOR HER. BECAUSE SHE TOOL ATIVAN WE DONT WANT TO GIVE HER CHARCOAL AND SHE BECOMES TOO SEDATED AND VOMITS. WE WILL DO Q3HR ASPIRIN LEVELS FOR 6 HOURS TO TREND HER ASPIRIN LEVELS. JUST LET HER SLEEP IT OFF AND WE WILL CONTINUE TO MONITOR HER.
[2025-05-13 23:09] LABS: Collection Type, Urine Clean Catch
[2025-05-13 23:17] LABS: Bacteria,Urine Rare; Bilirubin,Urine Negative (Negative); Blood,Urine Trace (Negative); Clarity,Urine Clear (Clear/Hazy); Color,Urine Lt-Yellow (Lt Yel-Yel); Culture Indicated,Urine Not Indicated; Glucose, Urine Negative (Negative); Ketones,Urine Negative (Negative); Leukocyte Esterase,Urine Negative (Negative); Nitrite,Urine Negative (Negative); PH,Urine 6.5 (5.0-7.0); Protein,Urine Negative (Neg - Trace); RBC,Urine 2 /hpf (0-3); Specific Gravity,Urine 1.012 (1.001-1.035); Squamous Epithelial Cell,Urine 1 /hpf (0-5); Urobilinogen,Urine Negative mg/dL (0.0-1.0); WBC,Urine 1 /hpf (0-5)
[2025-05-13 23:24] LABS: Amphetamine/Methamp Scrn,U Negative (Negative); Barbiturate Screen,Urine Negative (Negative); Benzodiazepines Screen,Urine Negative (Negative); Benzoylecgonine Screen, Ur Negative (Negative); Fentanyl Screen,Urine Negative (Negative); Opiate Screen,Urine Negative (Negative); THC Screen,Urine Negative (Negative)
[2025-05-14 00:51] LABS: Salicylate < 3.0 mg/dL
[2025-05-14 03:38] LABS: Salicylate < 3.0 mg/dL
[2025-05-14 06:20] VITALS: BP 100/66; PULSE 89; RESP 14; TEMP 37; O2SAT 99
--- NOTE | 2025-05-14 10:03 | EDNOTE_ITS ---
Emergency Room Addendum Addendum Narrative: 0600: Care assumed from Dr. Doan, the previous shift emergency physician. Past medical, surgical, social and family history reviewed. Vitals and home medications reviewed. I will assume the care of the patient at this time, pending mental health evaluation and final disposition. Please refer to the emergency department record for history and examination from initial visit.?The following addendum documentation note is intended to reflect any pending information, findings, or radiology results not included in the patient?s initial chart. 1300: Patient has been evaluated by social services specialist and rescinded the 5150 hold. State there is a safety plan in place with both patient and mother. Patient has an appointment scheduled tomorrow with therapist and psychiatrist @ 09:00 AM. Patient has remained stable through ED course, will DC home.
[2025-05-14 10:33] VITALS: BP 107/69; PULSE 93; RESP 18; TEMP 36.5; O2SAT 99
--- NOTE | 2025-05-14 11:06 | PC.NURSE ---
Corbin, from poison control called, and stated case is closed on her end.
--- NOTE | 2025-05-14 13:44 | PC.CC ---
1300-Pt is a 24 yo female who presents to the ER BIBA as according to the 5150 Hold for DTS, pt attempted to end her life by writing a suicide note and ingesting about 4 pills of Colanzapine. ASW Maribel Rosario met with patient [id number] to complete assessment. ASW introduced self, role, and reason for assessment. ASW disclosed limits of confidentiality as well. Patient appeared alert and oriented to self, place, and situation. Patient was pleasant; her mood appeared sad, maturity presented much younger than her age. Her behavior later appeared calm and cooperative. Patient?s thought process was linear and organized. No signs of delusions, paranoid or AVH, but she admitted to h/o AVH at times when she is very depressed. Pt denies AVH, denied SI/HI and denied self harm. Pt reported that yesterday, she and her mother engaged into an argument because of the way the mother made her fideo, as the mother did not make it with love. Pt reported that the way the mother made her fideo was made without love. Pt stated that upset her which led a huge argument. Pt stated she journals and stated she immediately wrote in her journal a note that stated she did not want to be there anymore and wanted to leave. However, the pt reported that the mother took it as if she wanted to kill herself. Pt reported that she ingested the said 4 pills due to attention seeking and wanted the attention of her mother because she was upset. Pt stated she in no way wants to end her life. Pt stated she has reason to live as she wants to go to school to be something and wants to work to earn her own money and be independant one day. Pt denied SI/HI, admits to AVH at times, but is not active now. Her Moca Scale was low. Pt is willing to safety plan and states she sees Cristy Welsh at [facility] in [place]. ASW contacted Cristy who was able to get the pt into an immediate appointment for 05/15/25 at 9am.Pt agreed to the plan. The pts mother agreed to the safety plan, which includes, the mother will administer all medications to the pt if needed, mother will keep all meds and sharps under lock and hurtado to where she is the only one who will have access. Pts mother agreed to take full responsibility of the pt and will continue to watch her for the next 72 hours. Pts mother will transport the pt to her appoitment on 05/15/25 at 9am. Pt and mother are aware that it pt arrives back to the hospital for the SI/OD reasons, her evaluation outcome will be much different and it would be highly likely the pt at that time will be placed on a 5150 Hold with LPS placement. Pt and the mother understood.
[2025-05-14 14:00] VITALS: BP 120/78; PULSE 88; RESP 19; TEMP 36.8; O2SAT 95
== END 2025-05-14 14:18 | disposition home or self-care (01) ==
PROVIDERS: Emergency Medicine; Emergency Provider Family Medicine
DX: Z04.6 Encounter for general psychiatric examination, requested by authority (principal); R00.0 Tachycardia, unspecified; R06.02 Shortness of breath; T42.4X1A Poisoning by benzodiazepines, accidental (unintentional), initial encounter; T39.011A Poisoning by aspirin, accidental (unintentional), initial encounter
CPT/HCPCS: 36415; 71045; 80053; 80307; 80320; 80329; 81001; 82248; 82550; 83735; 84443; 84484; 84703; 85025; 87400; 87811; 93005; 96127; 96360; 99284; J7030; A9270; G0480

== ENCOUNTER 2025-06-28 16:03 | Emergency (ER) | payer MEDICAID, SELFPAY ==
[2025-06-28] VITALS (11 sets, daily range): BP systolic 87–110; BP diastolic 51–75; PULSE 77–125; RESP 17–24; TEMP 36.2–37.3; O2SAT 97–100; BMI 36.0
--- NOTE | 2025-06-28 16:06 | EKG_ITS ---
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
[2025-06-28] MEDS: SODIUM CHLORIDE 0.9% 1000 ML 1,000 ML 999 ML IV (16:20)
--- NOTE | 2025-06-28 16:23 | EDNOTE_ITS ---
ED Overdose RME/HPI General Chief Complaint: Overdose Stated Complaint: POSSIBLE OVERDOSE Time Seen by Provider: 06/28/25 16:04 Arrival date/time: 06/28/25 16:03 RME / HPI RME / HPI Narrative: DR. HANDLEY MAIN ED EVALUATION: 24-year-old female with history of schizophrenia presents to the Emergency Department via EMS for intentional overdose approximately 30 minutes prior to arrival. Per EMS, the patient ingested an unknown quantity of Hytrin (terazosin), Ditropan (oxybutynin), and melatonin, all medications belonging to her parents. She stated that she attempted suicide because her parents drain her emotionally. EMS reported her last blood pressure was 96/45 mmHg. No vomiting or loss of consciousness reported. Related Data Home Medications ?Medication ?Instructions ?Recorded ?Confirmed vits no.133-ferrous 1 tab PO QDAY 10/16/22 fumarate 28 mg-folic acid 800 mcg tablet () Previous Rx's ?Medication ?Instructions ?Recorded ibuprofen 800 mg tablet 800 mg PO TID PRN pain #30 t abs 04/14/24 aripiprazole 30 mg tablet (Abilify) 30 mg PO QDAY #5 t abs 09/05/24 Allergies Allergy/AdvReac Type Severity Reaction Status Date / Time No Known Allergies Allergy Verified 09/05/24 17:23 Review of Systems Review of Systems Systems Reviewed: All systems reviewed, normal except as documented Past Medical History Past Medical History REPRODUCTIVE: Positive Previous Pregnancies PSYCHO/SOCIAL: Positive Schizophrenia, Bipolar Disorder, Depression, Anxiety and Behavior Problems Social History SMOKING STATUS: Never smoker SUBSTANCE USE: marijuana (smokes) ED Exam Narrative Physical exam: GENERAL APPEARANCE:? alert and oriented x 4, well-developed, well-nourished, no acute distress HEENT: normocephalic, atraumatic NECK: supple LUNGS: no respiratory distress, normal effort HEART: good peripheral perfusion ABDOMEN: non distended EXTREMITIES:? atraumatic NEUROLOGIC: awake; alert and oriented x4; cranial nerves II-XII grossly intact PSYCHIATRIC:? appropriate mood and affect SKIN: warm, dry, normal color; no rashes Course Quality Measures none Orders Category Date Time Status 1799 Psychiatric Hold NOW Care 06/28/25 16:15 Ordered Bedside Blood Glucose NOW Care 06/28/25 16:06 Completed Oven Roaster NOW Care 06/28/25 16:06 Completed EKG (ED ONLY) *Do not use* NOW Care 06/28/25 16:06 Completed EKG (ED ONLY) *Do not use* NOW Care 06/28/25 23:45 Completed One-to-one observation NOW Care 06/28/25 16:04 Completed Diet Regular Diet 06/29/25 Breakfast Active EKG (ED Only) Stat Exams 06/28/25 16:06 Draft EKG (ED Only) Stat Exams 06/28/25 23:45 Draft Acetaminophen Stat Lab 06/28/25 16:30 Completed Alcohol, Blood Medical Stat Lab 06/28/25 16:30 Completed CBC Stat Lab 06/28/25 16:30 Completed CMP [Comprehensive Metabolic Panel] Stat Lab 06/28/25 16:30 Completed Drug Screen,Urine Stat Lab 06/28/25 18:44 Completed Salicylate Stat Lab 06/28/25 16:30 Completed Sodium Chloride 0.9% 1000 ml [Ns] 1,000 ml Med 06/28/25 16:04 Discontinued IV 999 mls/hr Sodium Chloride 0.9% 1000 ml [Ns] 1,000 ml Med 06/29/25 01:33 Discontinued IV 999 mls/hr Vital Signs Vital signs: Vital Signs Temperature 97.2 F 06/28/25 16:07 Pulse Rate 105 H 06/28/25 16:07 Respiratory Rate 17 06/28/25 16:07 Blood Pressure 96/55 L 06/28/25 16:07 Pulse Oximetry (%) 97 06/28/25 16:07 Oxygen Delivery Method Room Air 06/28/25 16:07 Overdose MDM Narrative MDM Narrative:: ICaity am scribing for and in the presence of Dr. Handley. Patient data External records reviewed:: [facility] previous records and EMS form Clinical information provided by:: patient and EMS Social determinants that could affect healthcare access:: mental health Patient has the following chronic illnesses:: schizophrenia How is presenting disease/condition affected by chronic disease/condition?: exacerbated by Evaluation data The following diagnostics were reviewed and interpreted by me:: lab results and EKG tracing(s) Lab and/or radiology exams considered but not ordered:: none Interpretation Summary: My interpretation: EKG performed at 1637 hours, sinus rhythm, rate 114, possible Q wave in lead 3 and AVF, QT is 315, no acute ischemic changes Medications / Prescriptions Medications or Prescriptions considered but not ordered:: none Medication administrations:: Medication Administration History Discontinued Medications Sodium Chloride (Ns) 1,000 mls @ 999 mls/hr IV .Q1H1M ONE Stop: 06/28/25 17:04 Last Infusion: 06/28/25 17:47 Dose: Infused Documented By: Admin: 06/28/25 16:20 Dose: 999 mls/hr Documented By: JAIRO Sodium Chloride (Ns) 1,000 mls @ 999 mls/hr IV .Q1H1M ONE Stop: 06/29/25 02:33 Last Infusion: 06/29/25 03:53 Dose: Infused Documented By: Admin: 06/29/25 01:56 Dose: 999 mls/hr Documented By: KRISTAL see above Consultations Consultation(s) initiated? (list below): No Diagnosis Overdose Differential Diagnosis: other (Intentional overdose, suicidal ideation, and medication-induced hypotension.) Most likely diagnosis given after review of the tests above:: No official diagnoses at this time, still pending diagnostic tests. Patient signout to the webmethods consultant provider. Admission Indicated Admission indicated?: not indicated Explain why admission is indicated or not indicated:: No final disposition plan at this time, still pending diagnostic tests. Patient signout to the webmethods consultant provider. Admission Request Was there a request for admission?: No Disposition Plan Disposition Plan: other (specify) (Patient signed out to Dr. Garrido. ) Discharge Plan Plan Patient Disposition: [facility] Discharge Disposition comment: [place] Patient condition on transfer: Stable Prescriptions/Referrals Prescriptions/Med Rec: No Action 28-800 mg-mcg Tablet 1 tab PO QDAY ibuprofen 800 mg tablet 800 mg PO TID PRN (Reason: pain) Qty: 30 0RF aripiprazole [Abilify] 30 mg tablet 30 mg PO QDAY Qty: 5 0RF Referrals: No Primary/Family,Physician [Primary Care Provider] - In 1 week Problem List Clinical Impression: Chronic schizophrenia, Suicidal ideation Patient/Caregiver Discharge Instructions Discharge Activity: activity as tolerated Additional Instructions: Transfer to [facility] Print Language: Greek Stand Alone Forms: Asiya Award Info., Patient Portal Info Letter
--- NOTE | 2025-06-28 16:30 | PC.NURSE ---
POISON CONTROL CALLED, SPOKE WITH WILLIAMS. PER WILLIAMS POSSIBILITY FOR TACHYCARDIA, EKG CHANGES WITH QRS WIDENING, HYPOTENSION, AND SEIZURES. RECOMMENDATIONS ARE EKG, FOOD AND BEVERAGE MANAGER X6HRS, LABS TO INCLUDE CHEMISTRY, TYLENOL, ASPIRIN, AND ALCOHOL. RECOMMENDS SODIUM BICARB FOR QRS >120, FLUID BOLUS OR PRESSORS FOR HYPOTENSION, AND BENZO'S FOR SEIZURES. PROVIDER INFORMED.
--- NOTE | 2025-06-28 17:05 | PC.NURSE ---
CALL BACK FROM WILLIAMS WITH POISON CONTROL, PER WILLIAMS BECAUSE OXYBUTYNIN IS EXTENDED RELEASE, RECOMMENDATION FOR CARDIAC MONITORING SHOULD BE INCREASED TO 12 HOURS INSTEAD OF 6. PROVIDER NOTIFIED.
--- NOTE | 2025-06-28 17:08 | PC.CC ---
Patient was BIBA due to intentional overdose. Patient is pending medical clearance and poison control clearance for mental health evaluation.
[2025-06-28 17:10] LABS: Basophils # (Auto) 0.0 Thou/mm3 (0.0-0.2); Basophils % (Auto) 0 % (0-2.5); Eosinophils # (Auto) 0.0 Thou/mm3 (0.0-0.5); Eosinophils % (Auto) 0 % (0-10); Hematocrit 33.4 % (36.0-46.0); Hemoglobin 11.1 g/dL (12.0-16.0); Immature Granulocytes Auto 0.04 Thou/mm3 (0.00-0.00); Lymphocytes # (Auto) 1.4 Thou/mm3 (1.0-4.8); Lymphocytes % (Auto) 14 % (10-50); Mean Corpuscular HGB Conc 33.2 g/dl (31.0-37.0); Mean Corpuscular Hemoglobin 28.3 pg (25.0-35.0); Mean Corpuscular Volume 85 fL (80-100); Monocytes # (Auto) 0.3 Thou/mm3 (0.0-0.8); Monocytes % (Auto) 3 % (0-12); Neutrophils # (Auto) 8.1 Thou/mm3 (1.8-7.7); Neutrophils % (Auto) 82 % (37-80); Nucleated Red Blood Cell # 0.00 Thou/mm3 (0.00-0.00); Nucleated Red Blood Cell % 0 /100 WBC (0); Platelet Count 215 Thou/mm3 (140-440); RDW Standard Deviation 39.8 fL (36.4-46.3); Red Blood Count 3.92 Miln/mm3 (4.00-5.20); White Blood Count 9.9 Thou/mm3 (3.6-11.0)
[2025-06-28 17:18] LABS: Acetaminophen < 2.0 mcg/mL (10.0-20.0); Alanine Aminotransferase 12 U/L (10-49); Albumin, Serum 4.5 gm/dL (3.5-5.0); Albumin/Globulin Ratio 2.1 (1.2-2.2); Alcohol, Blood Medical < 3.0 mg/dL (0-10.0); Alkaline Phosphatase 46 U/L (46-116); Anion Gap 10 (7-16); Aspartate Amino Transferase 20 U/L (0-34); BUN/Creatinine Ratio 13 Ratio (12-20); Bilirubin,Total 0.3 mg/dL (0.3-1.2); Blood Urea Nitrogen 10 mg/dL (9-23); Calcium 9.2 mg/dL (8.3-10.6); Calcium (Corrected) 9.2 mg/dL (8.5-10.1); Carbon Dioxide 24.6 mMol/L (20.0-31.0); Chloride 105 mMol/L (98-107); Creatinine (Component) 0.8 mg/dL (0.6-1.3); Estimated Creatinine Clearance 123.5 mL/min (>60); Globulin 2.1 gm/dL (2.3-3.5); Glucose 180 mg/dL (74-106); Osmolality,Calculated 283 (275-295); Potassium 4.1 mMol/L (3.4-5.1); Salicylate < 3.0 mg/dL; Sodium 140 mMol/L (136-145); Total Protein 6.6 gm/dL (5.7-8.2); eGFR > 60 See Note
--- NOTE | 2025-06-28 17:40 | PC.NURSE ---
MOTHER AT BEDSIDE.
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
[2025-06-28 19:08] LABS: Amphetamine/Methamp Scrn,U Negative (Negative); Barbiturate Screen,Urine Negative (Negative); Benzodiazepines Screen,Urine Negative (Negative); Benzoylecgonine Screen, Ur Negative (Negative); Fentanyl Screen,Urine Negative (Negative); Opiate Screen,Urine Negative (Negative); THC Screen,Urine Negative (Negative)
--- NOTE | 2025-06-28 23:45 | EKG_ITS ---
[facility] Test Date: 2025-06-28 Pat Name: RAMONA SALGADO Department: Room: - Gender: Female Laundry Aid: : 2000 Requested By: Tima Jiménez Order Number: [id number] Reading MD: Tima Jiménez Measurements Intervals Rowe Rate: 85 P: 13 OH: 156 QRS: 6 QRSD: 82 T: 12 QT: 344 QTc: 409 Interpretive Statements SINUS RHYTHM LOW QRS VOLTAGE IN PRECORDIAL LEADS [QRS DEFLECTION < 1.0 mV IN CHEST LEADS] MINIMAL VOLTAGE CRITERIA FOR LVH, CONSIDER NORMAL VARIANT [MEETS CRITERIA IN ONE OF: R(aVL), S(V1), R(V5), R(V5/V6)+S(V1)] Compared to ECG 06/28/2025 16:37:42 Low QRS voltage now present Sinus tachycardia no longer present /store/S0/[id number]/ecg/[id number].pdf
--- NOTE | 2025-06-28 23:45 | PC.NURSE ---
SPOKE WITH POSION CONTROL (JULIUS), SHE STATED TO REPEAT EKG AND IF HER QRSD IS <120 SHE IS CLEARED BY POSION CONTROL AND THAT HER CARDIAC MONITORING CAN END AT 0100 DUE TO HER INGESTION BEING 3 HRS PRIOR TO ARRIVAL AT 1400
[2025-06-29] VITALS (7 sets, daily range): BP systolic 100–111; BP diastolic 50–74; PULSE 77–123; RESP 16–20; TEMP 36.6–37.1; O2SAT 98–100
[2025-06-29] MEDS: SODIUM CHLORIDE 0.9% 1000 ML 1,000 ML 999 ML IV (01:56)
--- NOTE | 2025-06-29 05:00 | PC.NURSE ---
DR ROSA AT BEDSIDE, MEDICALLY CLEARED BY
--- NOTE | 2025-06-29 07:20 | PC.NURSE ---
Report received from pm nurse, patient to ER for SI and OD, poison control called by pm nurse, monitoring complete Currently patient awake, alert and oriented x 3, patient talking to S/S worker and states she was feeling depressed, stating she felt Suicidal because she feels like she has no support from her parents or cousins. Patient states she follows up with [facility] for her mental health. Patient denies pain, skin is warm dry and pink. No new orders received at this time. VSS
--- NOTE | 2025-06-29 07:35 | PC.NURSE ---
Patient remains ccoperative and answering questions appropriately, patient states she wants to do better and get her life together. Patient denies SI at this time and states she was just feeling that at the moment. Patient given verbal reassurance and has no other needs at this time.
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
--- NOTE | 2025-06-29 11:37 | EDNOTE_ITS ---
Emergency Room Addendum Addendum Narrative: 0600: Care assumed from Dr. Garrido, the previous shift emergency physician. Past medical, surgical, social and family history reviewed. Vitals and home medications reviewed. I will assume the care of the patient at this time, pending mental health evaluation. Please refer to the emergency department record for history and examination from initial visit.?The following addendum documentation note is intended to reflect any pending information, findings, or radiology results not included in the patient?s initial chart. 09: Patient has been evaluated by our high school social science teacher who has placed her on a 5150 hold. At this time pending LPS facility placement. Patient has been accepted at [facility]. EMS p/u eta 1220
--- NOTE | 2025-06-29 12:05 | PC.NURSE ---
Report given to Paramedicbailee [place], here to take patient to [facility].
--- NOTE | 2025-06-29 12:13 | PC.NURSE ---
Report given to [place] nurse at [facility].
== END 2025-06-29 12:17 ==
PROVIDERS: Emergency Medicine; Emergency Provider Emergency Medicine
DX: T50.902A Poisoning by unspecified drugs, medicaments and biological substances, intentional self-harm, initial encounter (principal); F20.9 Schizophrenia, unspecified
CPT/HCPCS: 36415; 80053; 80307; 80320; 80329; 85025; 93005; 96127; 99285; J7030; G0480